=== PATIENT | female | born 1960 | race Two or more races ===

== ENCOUNTER 2021-09-13 11:51 | Emergency (ER) | payer OTHER ==
[~2021-09-13] VITALS: Ht 162.6 cm; Wt 56.7 kg
[2021-09-13 12:08] VITALS: BP 148/80
[2021-09-13] MEDS ORDERED: KETOROLAC TROMETH 60MG/2ML VIAL IM ONE (13:45)
[2021-09-13] MEDS ORDERED: PRED20TA2 PO (14:02)
[2021-09-13] MEDS ORDERED: MELO7.5T9 PO (14:02)
== END 2021-09-13 14:05 | disposition home or self-care (01) ==
LOC: ER 11:51 → EDSEX 11:51 → ER 14:04
DX: M50.30 Other cervical disc degeneration, unspecified cervical region (principal); M47.812 Spondylosis without myelopathy or radiculopathy, cervical region
CPT/HCPCS: 72040; 93005; 96372; 99283; J1885